=== PATIENT | male | born 1990 | race Caucasian/White ===

== ENCOUNTER 2018-04-10 12:46 | Emergency (ER) | payer SELFPAY ==
[~2018-04-10] VITALS: Ht 172.7 cm; Wt 97.1 kg
[~2018-04-10 12:46] MED LIST: ACET500 PO; ALBU90OI INH; AZIT250 PO; CEPH500 PO; CLIN150 PO; CLIN300 PO; CYCL10 PO; Cleocin HCl150 MG PO; DIAZ5 PO; HYDACE5 PO; IBUP600 PO; IBUP800 PO; METPRE4DP PO; METR500 PO; Norco 5-325 Ta1 EACH PO; ONDA4 PO; OSEL75CA PO; OXYACE5T PO; PRED20 PO; PROCODE120 PO; RXCLIN PO; Vistaril50 MG PO
[2018-04-10 16:15] LABS: Calcium, Ionized (POC) 1.19 mmol/L (1.10-1.46); Chloride (POC) 104 mmol/L (98-108); Creatinine (POC) 1.2 mg/dL (0.8-1.3); Glucose (ISTAT POC) 87 mg/dL (70-99); Hemoglobin (POC) 15.6 g/dL (13.5-17.5); Potassium (POC) 3.9 mmol/L (3.5-5.5); Sodium (POC) 140 mmol/L (135-148); Total CO2 (POC) 24 mmol/L (21-32)
[2018-04-10] MEDS ORDERED: Mucinex600 MG PO (16:42)
[2018-04-10] MEDS ORDERED: BENZ100A PO (16:42)
[2018-04-10 17:21] LABS: Influenza A Negative (NEGATIVE); Influenza B Negative (NEGATIVE)
== END 2018-04-10 17:02 | disposition home or self-care (01) ==
LOC: ER 12:46
PROVIDERS: Physician Assistant
DX: J40 Bronchitis, not specified as acute or chronic (principal); F17.220 Nicotine dependence, chewing tobacco, uncomplicated; Z88.2 Allergy status to sulfonamides; Z88.1 Allergy status to other antibiotic agents; Z88.5 Allergy status to narcotic agent; Z79.899 Other long term (current) drug therapy
CPT/HCPCS: 36415; 71046; 80047; 85014; 87804; 93005; 93010; 96374; 99283; J1100